=== PATIENT | female | born 1965 | race Caucasian/White ===

== ENCOUNTER 2022-12-23 14:35 | Emergency (ER) | payer MEDICAID, SELFPAY ==
[2022-12-23 14:44] VITALS: BP 163/100; PULSE 79; RESP 20; TEMP 36.8; O2SAT 99
--- NOTE | 2022-12-23 15:15 | DI.CT_ITS ---
Exam(s) CT LUMBAR SPINE W CT THORACIC SPINE W EXAM: CT THORACIC and lumbar SPINE W CLINICAL HISTORY: Neurostimulator implant worsening pain. TECHNIQUE: Imaging Protocol: Axial computed tomography images with coronal and sagittal reformatted images were created and reviewed. CONTRAST MATERIAL: Intravenous: Omnipaque 350. Contrast volume:100 mL COMPARISON: CT CT LUMBAR SPINE W from 12/23/2022 FINDINGS: Bones: No fractures or dislocations are seen. There are degenerative changes seen in the lumbar spin e particularly at the L5-S1 disc level. There is a broad-based disc bulge at L4-L5 causing severe ce ntral spinal canal stenosis. No lytic or sclerotic lesions are seen. There is a prior L5 laminectom y. There is a mild levoscoliosis. Old superior endplate compression deformities are seen at T3 and T5. Soft tissues: The soft tissues of the chest are unremarkable. No suspicious soft tissue masses are se en. There is a left gluteal subcutaneous neurostimulator. The nerve stimulator is seen at the epidu ral space at T8-T9. Enhancement: Normal abnormal enhancement is identified. IMPRESSION: 1. No paravertebral soft tissue masses or abnormal enhancement. 2. Left gluteal subcutaneous neural stimulator which is seen in the epidural space at T8-T9. 3. Degenerative changes in the thoracic and lumbar spine. 4. Old superior endplate compression fracture deformities at T3 and T5. No acute fractures or sublux ations. RADIATION DOSE DELIVERED: 998.55 mGy.cm Total DLP DATA REPOSITORY: All CT scans at this facility are submitted to the National Radiology Data Registry (NRDR) Dose Index Registry (DIR) with the [employer] ([employer]). RADIATION OPTIMIZATION: All CT scans at this facility use at least one of these dose optimization te chniques: automated exposure control; mA and/or kV adjustment per patient size (includes targeted exa ms where dose is matched to clinical indication); or iterative reconstruction.
--- NOTE | 2022-12-23 15:15 | DI.RAD_ITS ---
Exam(s) XR CHEST 2V PA LATERAL EXAM: XR CHEST 2V PA LATERAL CLINICAL HISTORY: cough TECHNIQUE: 2D digital imaging was performed of the chest. Two images were obtained. PA and lateral views were obtained. COMPARISON: No exams were available for comparison FINDINGS: MEDIASTINUM: Normal. HEART: Normal. PULMONARY VASCULATURE: Normal. LUNGS: Clear. PLEURAL SPACE: No pleural effusion or pneumothorax. BONE:Within normal limits for the patient's age. OTHER FINDINGS:There is a nerve stimulator device in place. The tip is seen at the T8-T9 level. IMPRESSION: No acute pulmonary findings. DATA REPOSITORY: RADIATION DOSE DELIVERED:
[2022-12-23 15:21] LABS: Lactate 0.6 mmol/L (0.6-1.4)
--- NOTE | 2022-12-23 15:21 | ED.GENADUL_ITS ---
Discharge Plan Disposition Patient Disposition: Home Condition: Stable Discharge Details Clinical Impression: Chronic back pain Primary Care Provider: Jessica Colby ED Provider: Joy Malave Home Meds and New Rx's Prescriptions: Continued CATIFLAN 50 mg PO QID PRN TOPAMAX 100 MG tablet 100 mg PO BID TYLENOL EXTRA STRENG 500 MG tablet 500 mg PO 1500 12/01/08 VALTREX 500 MG tablet 500 mg PO DAILY VITAMIN D 400 UNIT capsule 400 unit PO TID WELLBUTRIN SR 150 MG TABLET.SA 2 tab PO DAILY latanoprost [Xalatan] 2.5 ML drops 2.5 ml Ophthalmic HS sennosides [Senokot] 1 TAB tablet 2 tab PO HS acetaminophen [Tylenol] 325 MG tablet 2 day PO BID pantoprazole 40 MG tablet,delayed release (DR/EC) 40 mg PO DAILY chromium-brindal rodríguez [Garcinia Cambogia] 1 EACH tablet 1 ea PO DIRECTED pramipexole 0.125 MG tablet 2 l PO DAILY docusate sodium [Colace] 100 MG capsule 100 mg PO DAILY bisacodyl 5 MG tablet,delayed release (DR/EC) 5 mg PO DAILY PRN fluticasone propionate 16 GM spray,suspension 16 gm NS DAILY melatonin 3 MG tablet extended release 9 mg PO HS PRN levalbuterol tartrate [Xopenex HFA] 200 PUFF HFA aerosol inhaler 200 puff Inhalation Q6H PRN PRN pregabalin [Lyrica] 150 MG capsule 150 mg PO DAILY cetirizine [Zyrtec] 10 MG capsule 10 mg PO BID vilazodone [Viibryd] 20 MG tablet 20 mg PO DAILY Meloxicam 7.5 MG Tablet 7.5 mg PO BID PRN doxycycline hyclate [Doryx] 100 MG tablet,delayed release (DR/EC) 100 mg PO BID Qty: 14 0RF Discharge Instructions Instructions: Chronic Back Pain (DC) Additional Instructions: No bending lifting or twisting from the waist Follow-up with your outpatient spine providers for further evaluation You can try lidocaine patches for symptoms. Referrals: Jessica Colby [Primary Care Provider] - Discharge Data Discharge Date/Time-TO BE ENTERED AT DEPARTURE: 12/23/22 17:35 Medical Decision Making <James Flynn NP - Last Filed: 12/24/22 17:29> Patient presenting to the emergency department for chief complaint of back pain. Patient reports over the past 2 weeks she has noted increased back pain mainly on the right side of her mid thorax radiating laterally. Patient has history of chronic back pain with neurostimulator implant and states that she has had complications including MRSA infections. Patient denies any fever but does state intermittent chills, pain with movement, small area underneath bra line that she thought was slightly reddened. She also reports over the past couple months she has had a cough that does worsen her pain. Physical exam shows clear lung sounds, normal cardiac exam, significant surgical scar midline of the thorax with mid thorax abrasion just under the bra line with no purulence, no drainage, no significant surrounding erythema, no fluctuance. Patient does have some right-sided paraspinal tenderness to palpation and otherwise unremarkable exam. Patient is well-appearing with stable vital signs beyond noted hypertension. Given patient's history of neural spinal implant with some complications noted in the past will perform labs and CT imaging. Will perform chest x-ray due to patient's complaint of continued cough. Overall with patient's well appearance I have lower suspicion that this is infection but given history will proceed with work-up. Pending results will give patient small dose of ketorolac. <Joy Malave NP - Last Filed: 12/23/22 17:23> Medical Records Medical records reviewed: Yes I reviewed the patient's medical records. Medical records narrative: Report and care of patient has been received from Freddie Flynn APRN. Chart has been reviewed. We are awaiting CT imaging. Patient remains hemodynamically stable with exam unchanged while awaiting results. Her CAT scans have been reviewed and shows no acute findings to explain her symptoms. She is stable and ready for discharge to home Imaging Data Radiologic Study: Imaging: CT Scan Radiologist's impression: Patient Name: Mitali Armas Unit #: [id number] Loc: ER ? Ordering Provider:? Status: REG ER ? Primary Care Provider: Jessica Colby Date of Exam: 12/23/22 Sex: F ? : 1965 Age: 57 ? Exam(s) PROCEDURE INFORMATION: Exam: CT Thoracic Spine With Contrast Exam date and time: 12/23/2022 4:29 PM Age: 57 years old Clinical indication: Pain in thoracic spine; Patient HX: Neurostimulator implant, worsening pain TECHNIQUE: Imaging protocol: Computed tomography of the thoracic spine with contrast. COMPARISON: No relevant prior studies available. FINDINGS: Tubes, catheters and devices: Thoracic level epidural pain management stimulator leads are noted in the posterior epidural space at T8-T9. Bones/joints: There is chronic mild superior endplate compression of T5 and T3. There are no acute fractures. No lytic or blastic bone lesions. Multilevel [id number] facet arthropathy. Calcified disc at T9-10 Soft tissues: Paraspinous soft tissues are unremarkable. Vasculature: Descending thoracic aorta is normal in course and caliber. Lungs: Visible lung mike are unremarkable. Pleural spaces: Visible pleural space is unremarkable. IMPRESSION: 1. ? Degenerative facet changes. 2. ? Old mild superior endplate compression fractures of T3 and T5. Minimal loss of height. 3. ? Posterior thoracic epidural pain pest management supervisor at the T8-T9 level. 4. ? Paravertebral soft tissues are unremarkable. 5. ? No acute findings. Dictated and Authenticated by: Ivan Wesley MD. Ordering:JESSICA Ramirez MD Radiologic Study #2: Imaging: X-Ray Radiologist's impression: Patient Name: Mitali Armas Unit #: [id number] Loc: ER ? Ordering Provider:? Status: REG ER ? Primary Care Provider: Jessica Colby Date of Exam: 12/23/22 Sex: F ? : 1965 Age: 57 ? Exam(s) PROCEDURE INFORMATION: Exam: XR Chest Exam date and time: 12/23/2022 4:40 PM Age: 57 years old Clinical indication: Cough TECHNIQUE: Imaging protocol: Radiologic exam of the chest. Views: 2 views. COMPARISON: CT THORACIC SPINE W 12/23/2022 4:29 PM FINDINGS: Lungs: Unremarkable. No consolidation. Pleural spaces: Unremarkable. No pleural effusion. No pneumothorax. Heart/Mediastinum: Unremarkable. No cardiomegaly. Bones/joints: No acute skeletal changes. Thoracic spine epidural pain management stimulator leads. IMPRESSION: 1. ? No acute findings. 2. ? Clear lungs and pleural space. Dictated and Authenticated by: Ivan Wesley MD. Ordering:JESSICA Ramirez MD Radiologic Study #3: Radiologist's impression: Exam(s) PROCEDURE INFORMATION: Exam: CT Lumbar Spine With Contrast Exam date and time: 12/23/2022 4:29 PM Age: 57 years old Clinical indication: Low back pain; Patient HX: Neurostimulator implant, worsening pain TECHNIQUE: Imaging protocol: Computed tomography of the lumbar spine with contrast. COMPARISON: No relevant prior studies available. FINDINGS: Tubes, catheters and devices: There is a left gluteal subcutaneous neurostimulator. Bones/joints: Lumbar vertebral bodies are normal in height, shape, density, and alignment. There is severe degenerative disc space narrowing at L5-S1. There is a broad-based posterior disc bulge at L4-L5 measuring 6 mm. There is severe spinal stenosis at L4-L5. No compression fractures. No neoplastic features. Previous L5 total laminectomy. Mild levoscoliosis. Vasculature: Abdominal aorta is normal in caliber. Minor atherosclerotic calcium. Soft tissues: Paravertebral soft tissues are unremarkable. IMPRESSION: 1. ? Degenerative lumbar spine. 2. ? No compression fractures. 3. ? Severe degenerative disc disease at L5-S1. 4. ? Severe spinal stenosis at L4-L5 with a broad-based posterior 6 mm disc bulge, severe ligamentum flavum hypertrophy, and moderate to severe facet arthropathy. 5. ? Paravertebral soft tissues are unremarkable. Dictated and Authenticated by: Ivan Wesley MD. Ordering:JESSICA Ramirez MD HPI <James Flynn NP - Last Filed: 12/24/22 17:29> General Mode of arrival: ambulatory . Date/Time Provider Initiated Documentation: 12/23/22 14:40 . Limitations to Documentation: no limitations . Information obtained by: patient and RN notes reviewed . History of Present Illness 57 year old F presents to the emergency department with the chief complaint of Back pain, described as moderate and similar to prior episodes, Quality is described as aching, and is localized to the back. Patient reports radiation to (Lateral). Patient started experiencing this week(s) (2) and it has been constant. No relieving factors improve symptom(s), Movement worsens symptoms . Patient notes no other symptoms.. Patient did receive the following treatments prior to arrival, none Related Data Home Medications Medication Instructions Recorded Confirmed Catiflan 50 mg PO QID PRN 10/19/08 Topamax 100 mg PO BID 10/19/08 Valtrex 500 mg PO DAILY 10/19/08 Vitamin D 400 unit PO TID 10/19/08 Wellbutrin Sr 2 tab PO DAILY 10/19/08 Tylenol Extra Streng 500 mg PO 1500 12/01/08 12/01/08 Meloxicam 7.5 mg PO BID PRN 12/06/16 12/06/16 acetaminophen 325 mg tablet 2 day PO BID 12/06/16 12/06/16 (Tylenol) bisacodyl 5 mg tablet,delayed 5 mg PO DAILY PRN 12/06/16 12/06/16 release cetirizine 10 mg capsule (Zyrtec) 10 mg PO BID 12/06/16 12/06/16 chromium 200 mcg-brindal rodríguez 500 1 ea PO DIRECTED 12/06/16 12/06/16 mg tablet (Garcinia Cambogia) docusate sodium 100 mg capsule 100 mg PO DAILY 12/06/16 12/06/16 (Colace) fluticasone propionate 50 16 gm NS DAILY 12/06/16 12/06/16 mcg/actuation nasal spray,suspension latanoprost 0.005 % eye drops 2.5 ml ophthalmic (eye) HS 12/06/16 12/06/16 (Xalatan) levalbuterol tartrate 45 200 puff inhalation Q6H PRN PRN 12/06/16 12/06/16 mcg/actuation aerosol inhaler (Xopenex HFA) melatonin 3 mg tablet,extended 9 mg PO HS PRN 12/06/16 12/06/16 release pantoprazole 40 mg tablet,delayed 40 mg PO DAILY 12/06/16 12/06/16 release pramipexole 0.125 mg tablet 2 l PO DAILY 12/06/16 12/06/16 pregabalin 150 mg capsule (Lyrica) 150 mg PO DAILY 12/06/16 12/06/16 sennosides 8.6 mg tablet (Senokot) 2 tab PO HS 12/06/16 12/06/16 vilazodone 20 mg tablet (Viibryd) 20 mg PO DAILY 12/06/16 12/06/16 doxycycline hyclate 100 mg 100 mg PO BID ##14 03/05/17 tablet,delayed release (Doryx) Previous Rx's Medication Instructions Recorded doxycycline hyclate 100 mg 100 mg PO BID ##14 03/05/17 tablet,delayed release (Doryx) Allergies Allergy/AdvReac Type Severity Reaction Status Date / Time vancomycin Allergy Severe Anaphylaxis Unverified 12/23/22 14:49 cat dander Allergy Unverified 12/23/22 14:49 erythromycin base Allergy Unverified 12/23/22 14:49 gabapentin Allergy Unverified 12/23/22 14:49 hydrocodone Allergy Unverified 12/23/22 14:49 latex Allergy Unverified 12/23/22 14:49 Milk Containing Products Allergy Unverified 12/23/22 14:49 (Dairy) [Milk Containing Products] General Stated Complaint: Nk/Back Pain SHELLI: 3 Review of Systems <James Flynn NP - Last Filed: 12/24/22 17:29> Constitutional Constitutional: Reports chills and Denies fever(s) Cardiovascular Cardiovascular: Denies chest pain and Denies dyspnea on exertion Respiratory Respiratory: Reports cough, Reports pain with cough and Denies dyspnea on exertion Gastrointestinal Gastrointestinal: Denies abdominal pain, Denies change in bowel habits, Denies diarrhea, Denies nausea and Denies vomiting Genitourinary Genitourinary: Denies urinary incontinence Musculoskeletal Musculoskeletal: Reports as per HPI and Reports back pain Neurologic Neurologic: Denies sensory deficit PFSH <James Flynn NP - Last Filed: 12/24/22 17:29> All Active Problems (Updated 12/23/22 @ 17:21 by Joy Malave NP) Chronic back pain (Acute) Social History Smoking/Tobacco Use Status: Never Smoking risk assessment performed?: Yes Alcohol Intake: never Do you feel safe in your relationship?: Yes Exam <James Flynn NP - Last Filed: 12/24/22 17:29> Const General: cooperative, no acute distress and not ill appearing Orientation: alert, awake and oriented x3 HENMT Mouth: moist mucous membranes Resp Effort & Inspection: normal respiratory effort, able to speak in complete sentences and no respiratory distress Auscultation: clear to auscultation bilaterally Cardio Rate: regular rate Rhythm: regular rhythm Heart Sounds: S1 normal and S2 normal Back/Spine/Pelvis Cervical Spine: normal cervical lordosis, No cervical spinal tenderness and No step off deformity Thoracic/Lumbar Spine: surgical scar(s) present, pain with thoraco-lumbar ROM, paraspinal tenderness, No thoracic spinal tenderness and No lumbar spinal tenderness Skin General skin exam: no rashes or lesions noted Trauma: abrasion Neuro General: patient alert, patient awake, patient oriented x3, gait normal, tone normal, moves all extremities, no meningeal signs, no focal motor deficits and not confused Sensory Exam: no sensory deficits noted Course <James Flynn NP - Last Filed: 12/24/22 17:29> Vital Signs Vital signs: Vital Signs Temperature 36.8 C 12/23/22 14:44 Pulse 79 12/23/22 14:44 Respiratory Rate 20 12/23/22 14:44 Blood Pressure 163/100 H 12/23/22 14:44 Pulse Oximetry 99 12/23/22 14:44 Temperature 36.8 C 12/23/22 14:44 Temperature Source Skin 12/23/22 14:44 Pulse 79 12/23/22 14:44 Respiratory Rate 20 12/23/22 14:44 Respiratory Effort Normal 12/23/22 14:50 Blood Pressure 163/100 H 12/23/22 14:44 Blood Pressure Position Sitting 12/23/22 14:44 Pulse Oximetry 99 12/23/22 14:44 Oxygen Delivery Method Room Air 12/23/22 14:44 Oxygen Flow Rate 0 12/23/22 14:44 Pain Level 6 12/23/22 14:44 Sign Out <James Flynn NP - Last Filed: 12/24/22 17:29> Sign Out Data: Sign Out Comment: Patient signed out to Joy Malave pending labs and CT imaging with likely disposition of discharge to follow-up with her spinal surgeon due to her back pain unless abnormal findings are noted on work-up Last updated by James Flynn NP at 12/23/22 15:29
[2022-12-23 15:24] LABS: ESR 16 mm/hr (0-30)
[2022-12-23 15:27] LABS: Abs Immature Grans 0.02 10^3/uL (0.0-0.06); Absolute Basophil Count 0.07 10^3/uL (0.0-0.2); Absolute Eosinophil Count 0.07 10^3/uL (0.0-0.7); Absolute Lymphocyte Count 1.17 10^3/uL (1.2-3.4); Absolute Monocyte Count 0.39 10^3/uL (0.1-0.8); Absolute Neutrophil Count 4.73 10^3/uL (1.2-6.7); Basophils % 1.1; Eosinophils % 1.1; HCT 42.8 % (36.0-46.0); HGB 14.1 g/dL (11.2-15.7); Immature Grans % 0.3; Lymphocytes % 18.1; MCHC 32.9 % (32.0-36.0); MCV 91 fL (80-95); MPV 9.8 fL (8.0-11.0); Neutrophils % 73.4; Platelet Count 353 10^3/uL (130-400); RDW 13.1 % (11.7-14.6); WBC 6.45 10^3/uL (4.4-10.8)
[2022-12-23 15:46] LABS: ALT 27 U/L (14-59); AST 22 U/L (15-37); Alkaline Phosphatase 71 U/L (46-116); BUN 15 mg/dL (7-18); Bilirubin, Total 0.2 mg/dL (0.2-1.0); C-Reactive Protein 0.21 mg/dL (0.0-0.3); CREATININE 1.1 mg/dL (0.55-1.02); Calcium 9.2 mg/dL (8.5-10.1); Chloride 103 mmol/L (98-107); Estimated GFR 58.97 (mL/min/1.73m2); Glucose 113 mg/dL (74-106); Potassium 4.2 mmol/L (3.5-5.1); Sodium 138 mmol/L (136-145); Total Protein 7.5 g/dL (6.4-8.2)
[2022-12-23] MEDS: Ketorolac 15 MG/ML VIAL IVP (15:49)
[2022-12-23 16:11] LABS: Procalcitonin < 0.1 ng/mL
[2022-12-23] MEDS: Omnipaque 350 MG/ML 100 ML BTL IJ (16:27)
[2022-12-23] MEDS: Normal Saline - Diluent 50 ML VIAL IJ (16:28)
--- NOTE | 2022-12-23 16:55 | DI.VRAD_ITS ---
PROCEDURE INFORMATION: Exam: XR Chest Exam date and time: 12/23/2022 4:40 PM Age: 57 years old Clinical indication: Cough TECHNIQUE: Imaging protocol: Radiologic exam of the chest. Views: 2 views. COMPARISON: CT THORACIC SPINE W 12/23/2022 4:29 PM FINDINGS: Lungs: Unremarkable. No consolidation. Pleural spaces: Unremarkable. No pleural effusion. No pneumothorax. Heart/Mediastinum: Unremarkable. No cardiomegaly. Bones/joints: No acute skeletal changes. Thoracic spine epidural pain management stimulator leads. IMPRESSION: 1. No acute findings. 2. Clear lungs and pleural space. Dictated and Authenticated by: Ivan Wesley MD. Ordering:JESSICA Ramirez MD
--- NOTE | 2022-12-23 17:12 | DI.VRAD_ITS ---
PROCEDURE INFORMATION: Exam: CT Thoracic Spine With Contrast Exam date and time: 12/23/2022 4:29 PM Age: 57 years old Clinical indication: Pain in thoracic spine; Patient HX: Neurostimulator implant, worsening pain TECHNIQUE: Imaging protocol: Computed tomography of the thoracic spine with contrast. COMPARISON: No relevant prior studies available. FINDINGS: Tubes, catheters and devices: Thoracic level epidural pain management stimulator leads are noted in the posterior epidural space at T8-T9. Bones/joints: There is chronic mild superior endplate compression of T5 and T3. There are no acute fractures. No lytic or blastic bone lesions. Multilevel mwzf-kz-xpnhsdxj facet arthropathy. Calcified disc at T9-10 Soft tissues: Paraspinous soft tissues are unremarkable. Vasculature: Descending thoracic aorta is normal in course and caliber. Lungs: Visible lung mike are unremarkable. Pleural spaces: Visible pleural space is unremarkable. IMPRESSION: 1. Degenerative facet changes. 2. Old mild superior endplate compression fractures of T3 and T5. Minimal loss of height. 3. Posterior thoracic epidural pain home management supervisor at the T8-T9 level. 4. Paravertebral soft tissues are unremarkable. 5. No acute findings. Dictated and Authenticated by: Ivan Wesley MD. Ordering:JESSICA Ramirez MD
--- NOTE | 2022-12-23 17:17 | DI.VRAD_ITS ---
PROCEDURE INFORMATION: Exam: CT Lumbar Spine With Contrast Exam date and time: 12/23/2022 4:29 PM Age: 57 years old Clinical indication: Low back pain; Patient HX: Neurostimulator implant, worsening pain TECHNIQUE: Imaging protocol: Computed tomography of the lumbar spine with contrast. COMPARISON: No relevant prior studies available. FINDINGS: Tubes, catheters and devices: There is a left gluteal subcutaneous neurostimulator. Bones/joints: Lumbar vertebral bodies are normal in height, shape, density, and alignment. There is severe degenerative disc space narrowing at L5-S1. There is a broad-based posterior disc bulge at L4-L5 measuring 6 mm. There is severe spinal stenosis at L4-L5. No compression fractures. No neoplastic features. Previous L5 total laminectomy. Mild levoscoliosis. Vasculature: Abdominal aorta is normal in caliber. Minor atherosclerotic calcium. Soft tissues: Paravertebral soft tissues are unremarkable. IMPRESSION: 1. Degenerative lumbar spine. 2. No compression fractures. 3. Severe degenerative disc disease at L5-S1. 4. Severe spinal stenosis at L4-L5 with a broad-based posterior 6 mm disc bulge, severe ligamentum flavum hypertrophy, and moderate to severe facet arthropathy. 5. Paravertebral soft tissues are unremarkable. Dictated and Authenticated by: Ivan Wesley MD. Ordering:JESSICA Ramirez MD
[2022-12-23 17:31] VITALS: BP 164/97; PULSE 69; RESP 16; TEMP 36.1; O2SAT 99
== END 2022-12-23 17:35 | disposition home or self-care (01) ==
PROVIDERS: Nurse Practitioner Family; Emergency Provider Nurse Practitioner Acute Care; PCP Internal Medicine
DX: M54.50 Low back pain, unspecified (principal); G89.18 Other acute postprocedural pain; R05.9 Cough, unspecified; Z96.82 Presence of neurostimulator
CPT/HCPCS: 36415; 80053; 84145; 85652; 96374; 99285; 71046; 72129; 72132; 83605; 85025; 86140; 99284; J1885; J3490

== ENCOUNTER 2024-09-08 14:28 | Observation (INO) | payer BC, SELFPAY ==
[2024-09-08] VITALS (85 sets, daily range): BP systolic 106–163; BP diastolic 58–102; PULSE 58–105; RESP 20; TEMP 36.7; O2SAT 96–100
--- NOTE | 2024-09-08 16:08 | W.ED.GENAD ---
Discharge Plan Discharge Details Chief Complaint: RespSymp Primary Care Provider: Jessica Colby ED Provider: Bayron Jane Home Meds and New Rx's Prescriptions: No Action TYLENOL EXTRA STRENG 500 MG tablet 500 mg PO 1500 12/01/08 acetaminophen [Tylenol] 325 MG tablet 2 day PO BID bisacodyl 5 MG tablet,delayed release (DR/EC) 5 mg PO DAILY PRN fluticasone propionate 16 GM spray,suspension 16 gm NS DAILY pregabalin [Lyrica] 150 MG capsule 150 mg PO DAILY Zyrtec 10 MG capsule 10 mg PO BID vilazodone [Viibryd] 20 MG tablet 20 mg PO DAILY lisinopril 40 mg tablet 40 mg PO DAILY hydrochlorothiazide 25 mg tablet 25 mg PO DAILY HPI General Date/Time Provider Initiated Documentation: 09/08/24 15:23. HPI Narrative: MDM This is an overall well-appearing normothermic and not tachycardic 59-year-old female with recent spinal cord stimulator and generalized fatigue with heart rate greater than 90 for which patient will undergo screening labs and broad-spectrum antibiotics given concern for possible sepsis. Given her malaise we will send a dimer to assess for PE given that she is recently postop. She has no pain out of proportion to suggest necrotizing soft tissue infection. She is not having any significant back pain to suggest increased risk for spinal epidural abscess so I do not feel that she requires an emergent MRI. No fluctuance to suggest abscess. Furthermore she has no objective weakness in her bilateral lower extremities. She does have slightly decreased reflexes but she reports that this is chronic. She has not lost control of her bowels or bladder to suggest increased risk for cauda equina syndrome. No rash to suggest zoster. Given episodic chills cough will swab for COVID and obtain a chest x-ray. Patient is neurologically intact so not suspicious for CVA so I did not feel the patient for CT scan of her head. She has a soft nontender abdomen so my suspicion is low for intra-abdominal infection so I do not feel that her presentation represents appendicitis, diverticulitis. No black or bloody stools to suggest increased risk for acute blood loss anemia. 5:50 PM Basic metabolic panel with marked hyperglycemia and Acidosis. No ANDRES. Patient given crackers along with D5 NS. She is pending a D-dimer and a lactate. 10:20 PM Late charting due to patient care. Patient was ultimately accepted by Dr. Coughlin. Patient CT has not yet been read. HPI The patient presents for evaluation of generalized fatigue. She reports experiencing back pain following a spinal stimulator implantation procedure performed in [place] at the beginning of July 2024. The stimulator was initially implanted in 2018 due to a herniated disc impinging on her spinal cord, which required surgical intervention. She believes the current stimulator is not functioning optimally, as she experiences shocks during urination, even without any movement. She said that her surgery was performed at [facility] in [facility]. She also reports persistent back pain, which she describes as irritating. She reports that her back pain is not new or different chronic. She expresses concern about a potential recurrence of MRSA, citing previous instances where the infection was not immediately visible. She reports no loss of bowel or bladder control but admits to difficulty urinating, which improves when the stimulator is deactivated. She has been advised by her healthcare providers to allow time for healing. She recalls an incident of misdiagnosis with MRSA, which led to the insertion and subsequent removal of a PICC line. She also mentions a general feeling of malaise, including fatigue, frequent coughing, and occasional chills. She does not have any fevers. Exam General: Well-appearing in no acute distress speaking in complete sentences. Lying on the side of the stretcher. Head: Normocephalic, atraumatic. Eye: Extraocular eye movements intact. No conjunctival injection. No scleral icterus. Ear, nose, mouth, throat: Grossly normal inspection. Normal voice, handling secretions normally. Neck: Trachea midline. No midline cervical spinal tenderness. Cardiovascular: Well-perfused distal extremities. Regular rate and rhythm. Respiratory: Nonlabored respiration. Clear lungs bilaterally. Back: Midline thoracic healing incision. No step-offs. No deformities. No midline thoracic nor lumbar spine tenderness. At the approximately mid scapular line and the patient's left paraspinal lumbar area there is a well-healing approximately 3 cm incision her patient reports that her spinal cord stimulator is located. Gastrointestinal: Nondistended abdomen. Musculoskeletal: No edema. Moving all 4 extremities spontaneously. 5 out of 5 bilateral lower extremity strength on dorsi and plantarflexion. 1+ bilateral patellar reflexes. Patient has a stable gait. She can straight leg raise bilaterally. Skin: Normal for age and race, grossly normal temperature and turgor. No acute rash. Neurologic: Alert and appropriate, no apparent acute deficits. GCS 15. Cranial nerves II through XII intact grossly. L Related Data Home Medications ?Medication ?Instructions ?Recorded ?Confirmed Tylenol Extra Streng 500 mg PO 1500 12/01/08 12/01/08 09/08/24 acetaminophen 325 mg tablet 2 day PO BID 12/06/16 09/08/24 (Tylenol) bisacodyl 5 mg tablet,delayed 5 mg PO DAILY PRN 12/06/16 09/08/24 release cetirizine 10 mg capsule (Zyrtec) 10 mg PO BID 12/06/16 09/08/24 fluticasone propionate 50 16 gm NS DAILY 12/06/16 09/08/24 mcg/actuation nasal spray,suspension pregabalin 150 mg capsule (Lyrica) 150 mg PO DAILY 12/06/16 09/08/24 vilazodone 20 mg tablet (Viibryd) 20 mg PO DAILY 12/06/16 09/08/24 hydrochlorothiazide 25 mg tablet 25 mg PO DAILY 09/08/24 09/08/24 lisinopril 40 mg tablet 40 mg PO DAILY 09/08/24 09/08/24 Allergies Allergy/AdvReac Type Severity Reaction Status Date / Time vancomycin Allergy Severe Anaphylaxis Unverified 09/08/24 14:36 cat dander Allergy Hives Unverified 09/08/24 14:36 erythromycin base Allergy Hives Unverified 09/08/24 14:36 gabapentin Allergy Hives Unverified 09/08/24 14:36 hydrocodone Allergy Unknown Unverified 09/08/24 14:36 latex Allergy Unknown Unverified 09/08/24 14:36 Milk Containing Products Allergy Other (See Unverified 09/08/24 14:36 (Dairy) (Milk Containing Comment) Products) General Stated Complaint: RespSymp SHELLI: 3 Course Vital Signs Vital signs: Vital Signs Temperature 36.7 C 09/08/24 14:30 Pulse 95 H 09/08/24 14:30 Respiratory Rate 20 09/08/24 14:30 Blood Pressure 163/102 H 09/08/24 14:30 Pulse Oximetry 97 09/08/24 14:30 Temperature 36.7 C 09/08/24 14:34 Pulse 95 H 09/08/24 14:34 Respiratory Rate 20 09/08/24 14:34 Blood Pressure 163/102 H 09/08/24 14:34 Blood Pressure Position Sitting 09/08/24 14:34 Pulse Oximetry 97 09/08/24 14:34 Oxygen Delivery Method Room Air 09/08/24 14:34 Oxygen Flow Rate 0 09/08/24 14:34 Medical Decision Making Quality:SDOH Health Related Social Needs: No Data to Display [facility] All Active Problems (Updated 09/08/24 @ 22:27 by Bayron Coughlin) DVT prophylaxis (Acute) High anion gap (Acute) Hypoglycemia (Acute) Chronic back pain (Acute) Medical History (Updated 09/08/24 @ 22:27 by Bayron Coughlin) H/O methicillin resistant Staphylococcus aureus 2018 at [facility] ADHD Urticaria PTSD (post-traumatic stress disorder) Major depression Hypertension Surgical History (Updated 09/08/24 @ 22:11 by Bayron Coughlin) S/P placement of nerve stimulator lower back, battery replaced July 2024, [facility] Social History (Updated 09/08/24 @ 22:16 by Bayron Coughlin) Smoking/Tobacco Use Status: Never Smoking risk assessment performed?: Yes Alcohol Intake: never Do you feel safe in your relationship?: Yes Additional Social history: formerly worked at [employer] in [employer]. Lives in [place]
--- NOTE | 2024-09-08 16:59 | DI.RAD_ITS ---
Exam(s) XR PORTABLE CHEST AP EXAM: XR PORTABLE CHEST AP CLINICAL HISTORY: Fatigue TECHNIQUE: 2D digital imaging was performed of the chest. One image was obtained. An AP view was ob tained. COMPARISON: CR,XR XR CHEST 2V PA LATERAL from 12/23/2022 FINDINGS: MEDIASTINUM: Normal. HEART: Normal. PULMONARY VASCULATURE: Normal. LUNGS: Clear. PLEURAL SPACE: No pleural effusion or pneumothorax. BONE:Within normal limits for the patient's age. OTHER FINDINGS:Nerve stimulator device is again seen. IMPRESSION: No acute pulmonary findings. DATA REPOSITORY: RADIATION DOSE DELIVERED:
[2024-09-08 17:24] LABS: Abs Immature Grans 0.01 10^3/uL (0.0-0.06); Absolute Basophil Count 0.06 10^3/uL (0.0-0.2); Absolute Eosinophil Count 0.06 10^3/uL (0.0-0.7); Absolute Lymphocyte Count 1.43 10^3/uL (1.2-3.4); Absolute Monocyte Count 0.43 10^3/uL (0.1-0.8); Absolute Neutrophil Count 2.63 10^3/uL (1.2-6.7); Basophils % 1.3 %; Eosinophils % 1.3 %; HCT 40.5 % (36.0-46.0); HGB 13.5 g/dL (11.2-15.7); Immature Grans % 0.2 %; MCH 30.3 pg (27.0-33.0); MCHC 33.3 % (32.0-36.0); MCV 91 fL (80-95); MPV 9.9 fL (8.0-11.0); Monocytes % 9.3 %; Neutrophils % 56.9 %; Platelet Count 377 10^3/uL (130-400); RBC 4.46 10^6/uL (3.93-5.22); RDW 12.5 % (11.7-14.6); RDW-SD 41.5 fL; WBC 4.62 10^3/uL (4.4-10.8)
[2024-09-08 17:35] LABS: Anion Gap 17.4 mmol/L (3-11); BUN 15 mg/dL (7-18); CO2 21.6 mmol/L (21.0-32.0); CREATININE 0.8 mg/dL (0.55-1.02); Chloride 98 mmol/L (98-107); Estimated GFR 85.35 (mL/min/1.73m2); Sodium 137 mmol/L (136-145)
[2024-09-08 17:40] LABS: HCG Qual (Serum) Negative
[2024-09-08 17:42] LABS: Glucose 44 mg/dL (74-106)
[2024-09-08] MEDS: DEXTROSE 5%-0.9% SALINE 1,000 ML 1000 ML IV (18:19)
[2024-09-08 18:25] LABS: D-Dimer 782 ng/mlFEU (<500)
[2024-09-08] MEDS: CEFEPIME 2 GM in Normal Saline 100 ML IVPB (18:59)
[2024-09-08 19:14] LABS: COVID-19 PCR Negative (Negative); Influenza A PCR Negative (Negative); Influenza B PCR Negative (Negative); RSV PCR Negative (Negative)
[2024-09-08 19:15] LABS: Source Nasopharynx
[2024-09-08] MEDS: Normal Saline 1,000 ML 1000 ML IV (20:02)
[2024-09-08] MEDS: LINEZOLID 600 MG/300 ML BAG 300 MG IVPB (20:02)
[2024-09-08 20:48] LABS: Bilirubin Negative (Negative); Blood Small (Negative); Clarity Clear (Clear); Glucose >=1000 mg/dL (Negative); Ketones 40 mg/dL (Negative); Leukocyte Esterase Negative (Negative); Nitrite Negative (Negative); Specific Gravity <= 1.005 (1.005-1.025); Urobilinogen 0.2 mg/dL (Up to 0.2); pH 5.5 (5-8)
[2024-09-08 21:04] LABS: Bacteria Rare HPF (Negative); C & S Indicated? No; Casts Negative LPF (Negative); Crystals Negative HPF (Negative); Epithelial Cells Rare HPF (Negative); Mucus Negative (Negative); RBC 0-2 HPF (0-2); WBC Negative HPF (0-5)
[2024-09-08] MEDS: Omnipaque 350 MG/ML 100 ML BTL 70 ML IJ (21:36)
[2024-09-08] MEDS: Normal Saline - Diluent 50 ML VIAL IJ (21:38)
--- NOTE | 2024-09-08 21:41 | DI.CT_ITS ---
Exam(s) CT THORACIC SPINE RECONS EXAM: CT THORACIC SPINE RECONS CLINICAL HISTORY: Spinal stimulator. TECHNIQUE: Imaging Protocol: Axial computed tomography images with coronal and sagittal reformatted images were created and reviewed. CONTRAST MATERIAL: Intravenous: None COMPARISON: CT CT LUMBAR SPINE WO from 09/08/2024 FINDINGS: OSSEOUS: There is a neural stimulator with posterior epidural leads and at T8-T9 levels. This causes some art ifact.. There some calcification within the T9-10 disc. Also some endplate sclerosis noted in the i nferior aspect of T9 vertebral body. No evidence of acute fracture there is slight loss of height of superior endplates of upper thoracic vertebral bodies but without obvious acute appearance. Mild scoliosis convex left in the mid-upper t horacic spine. No prominent scoliosis. No significant osseous lesions. IMPRESSION: Findings as above but without acute fractures evident. RADIATION DOSE DELIVERED: 67.59mGy.cm Total DLP DATA REPOSITORY: All CT scans at this facility are submitted to the National Radiology Data Registry (NRDR) Dose Index Registry (DIR) with the [employer] (ACR). RADIATION OPTIMIZATION: All CT scans at this facility use at least one of these dose optimization te chniques: automated exposure control; mA and/or kV adjustment per patient size (includes targeted exa ms where dose is matched to clinical indication); or iterative reconstruction.
--- NOTE | 2024-09-08 21:41 | DI.CT_ITS ---
Exam(s) CT LUMBAR SPINE WO EXAM: CT LUMBAR SPINE WO CLINICAL HISTORY: Spinal stimulator. TECHNIQUE: Imaging Protocol: Axial computed tomography images with coronal and sagittal reformatted images were created and reviewed COMPARISON: No exams were available for comparison FINDINGS: Bones: Schmorl's node invagination noted in the superior endplate of L4. No acute vertebral fractur es identified. No listhesis. No pars defects.. There are no lytic osseous lesions evident. There is advanced chronic disc space narrowing at L5-S1 level noted. INDIVIDUAL LEVELS: T12-L1:No disc herniation nor canal stenosis. Facet joints unremarkable. No foraminal stenosis. L1-2: No disc herniation nor canal stenosis. Facet joints unremarkable. No foraminal stenosis. L2-3: No disc herniation nor canal stenosis. Facet joints unremarkable. No Foraminal stenosis L3-4: Symmetrical annular bulging. No prominent disc herniation. Central canal dimensions lower no rmal. Mild degenerative changes in the facet joints. No significant foraminal stenosis. L4-5: Normal disc height. Broad annular bulging. Moderate central spinal canal stenosis mild bilat eral foraminal stenosis. Mild degenerative changes both facet joints. L5-S1: Chronic disc space narrowing. No significant disc herniation or central canal stenosis. The re is mild bilateral foraminal stenosis The visualized sacroiliac joints and sacrum appear unremarkable. PARASPINAL SOFT TISSUES: There is a 4 x 3.8 cm cystic lesion in the right adnexa noted. IMPRESSION: 1. Findings as discussed per individual level above. There is significant central spinal canal steno sis at L4-5 level. There is also some foraminal stenosis at a few levels as described above. 2. There is a 4 x 3.8 cm right adnexal cystic lesion should be further studied with pelvic ultrasound . 3. Other findings as above. RADIATION DOSE DELIVERED: 612.12mGy.cm Total DLP DATA REPOSITORY: All CT scans at this facility are submitted to the National Radiology Data Registry (NRDR) Dose Index Registry (DIR) with the [employer] (ACR). RADIATION OPTIMIZATION: All CT scans at this facility use at least one of these dose optimization te chniques: automated exposure control; mA and/or kV adjustment per patient size (includes targeted exa ms where dose is matched to clinical indication); or iterative reconstruction.
[2024-09-08 22:06] LABS: BE (Venous) -2 mmol/L (-2-3); HCO3 (Venous) 24 mmol/L (23-28); O2 Sat (Venous) 89 %; TCO2 (Venous) 22 mmol/L (24-29); pCO2 (Venous) 44 mmHg (41-51); pH (Venous) 7.35 (7.31-7.41); pO2 (Venous) 59 mmHg
--- NOTE | 2024-09-08 22:07 | W.PM.HP.N ---
Date of service: 09/08/24 Time of Service: 21:20 Assessment and Plan Assessment and plan (1) Hypoglycemia: Status: Acute Assessment and plan: Odd presentation with general malaise and hypoglycemia Especially odd is the combination with >1000 glycosuria No insulin or hypoglycemic use such as SLGT2i. No history of bypass or other cause of short gut (which could also explain anion gap by d-lactose) She has been eating, but ketones in the urine. Alcoholic ketoacidosis could explain this and anion gap. She denies EtOH but will get levels. Follow up fingersticks have been in 200s. Concern from patient and ED is occult infection. Antibiotics were started. However the overall picture is not c/w sepsis. Her symptoms are more subacute. I don't think it makes sense to continue antibiotics. Will observe, follow (2) High anion gap: Status: Acute Assessment and plan: See above l-lactate not high She denies ingestion. Getting VBG to assess for actual acidosis, normal Will follow (3) Chronic back pain: Status: Acute Assessment and plan: Given her report of occult MRSA infection of previous device and her chronic pain, CT imaging being done She does not have any signs of local infection apparent on exam. (4) Hypertension: Assessment and plan: continue outpatient therapy (5) Major depression: Assessment and plan: continue outpatient therapy (6) Pelvic cyst in female: Status: Acute Assessment and plan: No pain in this area, consider outpatient f/u (7) DVT prophylaxis: Status: Acute Assessment and plan: enoxaparin History of Present Illness History of Present Illness Chief Complaint: malaise/fatigue Narrative: 59-year-old female with history of depression, chronic low back pain, HTN, and with recent spinal cord stimulator that was replaced in early july at [facility] who presents with persistent and worsening fatigue and malaise for the past several weeks. She can't put a finger on it, she just doesn't feel good. He has not had fevers/chills. She is eating, and hasn't lost weight. She has low emely pain chronically, but not worsening focal pain in the area of her surgery. Wounds healing. She just hasn't felt well since her surgery. She hasn't ingested anything other than food and her regular medications. No drugs or EtOH. She gets her meds bubble-packed from [facility] and lives alone she she is sure she hasn't mixed them up. She has been eating, urinating, and stooling normally. Some cough, but this isn't new. No SOB. No other URI symptoms. She states she felt similarly in 2018 when she had a device removed because it was infected. This is why she is worried. She was seen at [facility] at the end of july and given doxycycline over her concern for infection, though her provider was skeptical she had an infection. This didn't help. Review of Systems All systems reviewed & are unremarkable except as noted in HPI and below Respiratory Respiratory: Reports cough and Denies excessive phlegm production [facility] All Active Problems (Updated 09/08/24 @ 23:55 by Bayron Coughlin) Pelvic cyst in female (Acute) DVT prophylaxis (Acute) High anion gap (Acute) Hypoglycemia (Acute) Chronic back pain (Acute) Medical History (Updated 09/08/24 @ 23:55 by Bayron Coughlin) H/O methicillin resistant Staphylococcus aureus 2018 at [facility] ADHD Urticaria PTSD (post-traumatic stress disorder) Major depression Hypertension Surgical History (Updated 09/09/24 @ 00:04 by Bayron Coughlin) Status post bilateral salpingectomy ectopic S/P placement of nerve stimulator lower back, battery replaced July 2024, [facility] Social History (Updated 09/08/24 @ 22:16 by Bayron Coughlin) Smoking/Tobacco Use Status: Never Smoking risk assessment performed?: Yes Alcohol Intake: never Do you feel safe in your relationship?: Yes Additional Social history: formerly worked at [employer] in [employer]. Lives in [place] Meds Allergies and Home Medications Allergies Allergy/AdvReac Type Severity Reaction Status Date / Time vancomycin Allergy Severe Anaphylaxis Unverified 09/08/24 14:36 cat dander Allergy Hives Unverified 09/08/24 14:36 erythromycin base Allergy Hives Unverified 09/08/24 14:36 gabapentin Allergy Hives Unverified 09/08/24 14:36 hydrocodone Allergy Unknown Unverified 09/08/24 14:36 latex Allergy Unknown Unverified 09/08/24 14:36 Milk Containing Products Allergy Other (See Unverified 09/08/24 14:36 (Dairy) (Milk Containing Comment) Products) Home Medications ?Medication ?Instructions ?Recorded ?Confirmed ?Type Tylenol Extra Streng 500 mg PO 1500 12/01/08 12/01/08 09/08/24 History acetaminophen 325 mg tablet 2 day PO BID 12/06/16 09/08/24 History (Tylenol) bisacodyl 5 mg tablet,delayed 5 mg PO DAILY PRN 12/06/16 09/08/24 History release cetirizine 10 mg capsule (Zyrtec) 10 mg PO BID 12/06/16 09/08/24 History fluticasone propionate 50 16 gm NS DAILY 12/06/16 09/08/24 History mcg/actuation nasal spray,suspension pregabalin 150 mg capsule (Lyrica) 150 mg PO DAILY 12/06/16 09/08/24 History vilazodone 20 mg tablet (Viibryd) 20 mg PO DAILY 12/06/16 09/08/24 History hydrochlorothiazide 25 mg tablet 25 mg PO DAILY 09/08/24 09/08/24 History lisinopril 40 mg tablet 40 mg PO DAILY 09/08/24 09/08/24 History Exam Narrative Exam Narrative: GEN: Alert and oriented x 4, pleasant and cooperative, gives vague history. No acute distress at rest. HEENT: Head atraumatic. Conjunctiva clear, no icterus. PEERL, dilated in dark room, EOMI. no rhinorrhea. MMM, OP benign. Neck is supple with no masses or lymphadenopathy, trachea midline LUNGS: CTAB with normal effort CV: RRR with no murmurs, gallops, or rubs. ABD: active bowel sounds, soft, nontender and nondistended. No masses. EXT: no cyanosis, clubbing, or edema MSK: No joint redness or swelling. No spinal point tenderness. No CVAT NEURO: CN 2-12 grossly intact. Normal movement of 4 extremities. Normal speech and coordination. No tremor SKIN: No rashes or open wounds. Surgical wounds well healed, not tender in area of scars PSYCH: Normal mood, affect is somewhat exaggeratedly friendly, goofy. No hallucinations Results Imaging Abdomen CT scan report/results: report reviewed CT scan - pelvis: report reviewed Imaging Studies: CT Lumbar spine: 1. Progressing lumbar spinal stenosis 2. Right adnexal cystic lesion. Follow-up with pelvic ultrasound Labs 09/08/24 17:04 09/08/24 17:04 Labs: Laboratory Results - last 24 hr 09/08/24 09/08/24 09/08/24 17:04 18:31 18:42 WBC 4.62 RBC 4.46 Hgb 13.5 Hct 40.5 MCV 91 MCH 30.3 MCHC 33.3 RDW 12.5 Plt Count 377 MPV 9.9 Immature Gran % 0.2 Neutrophils % 56.9 Lymphocytes % 31.0 Monocytes % 9.3 Eosinophils % 1.3 Basophils % 1.3 Nucleated RBC % 0.0 Absolute Neutrophils 2.63 Absolute Lymphocytes 1.43 Absolute Monocytes 0.43 Absolute Eosinophils 0.06 Absolute Basophils 0.06 D-Dimer 782 H VBG Lactate 1.0 Sodium 137 Potassium 4.0 Chloride 98 Carbon Dioxide 21.6 Anion Gap 17.4 H BUN 15 Creatinine 0.8 Est GFR (CKD-EPI 2020) 85.35 Glucose 44 L* Calcium 9.0 Serum HCG, Qual Negative Urine Color Urine Clarity Urine pH Ur Specific [place] Urine Protein Urine Ketones Urine Blood Urine Nitrite Urine Bilirubin Urine Urobilinogen Ur Leukocyte Esterase Urine RBC Urine WBC Ur Epithelial Cells Urine Crystals Urine Bacteria Urine Casts Urine Mucus Ur Culture Indicated? Urine Glucose COVID-19 Source Nasopharynx SARS-CoV-2 (PCR) Negative Influenza Type A (PCR) Negative Influenza Type B (PCR) Negative RSV (PCR) Negative 09/08/24 19:54 WBC RBC Hgb Hct MCV MCH MCHC RDW Plt Count MPV Immature Gran % Neutrophils % Lymphocytes % Monocytes % Eosinophils % Basophils % Nucleated RBC % Absolute Neutrophils Absolute Lymphocytes Absolute Monocytes Absolute Eosinophils Absolute Basophils D-Dimer VBG Lactate Sodium Potassium Chloride Carbon Dioxide Anion Gap BUN Creatinine Est GFR (CKD-EPI 2020) Glucose Calcium Serum HCG, Qual Urine Color Yellow Urine Clarity Clear Urine pH 5.5 Ur Specific [place] <= 1.005 Urine Protein Negative Urine Ketones 40 H Urine Blood Small H Urine Nitrite Negative Urine Bilirubin Negative Urine Urobilinogen 0.2 Ur Leukocyte Esterase Negative Urine RBC 0-2 Urine WBC Negative Ur Epithelial Cells Rare Urine Crystals Negative Urine Bacteria Rare Urine Casts Negative Urine Mucus Negative Ur Culture Indicated? No Urine Glucose >=1000 H COVID-19 Source SARS-CoV-2 (PCR) Influenza Type A (PCR) Influenza Type B (PCR) RSV (PCR) Last Vital Signs Temp 36.7 C 09/08/24 14:34 Pulse 70 09/08/24 20:41 Resp 20 09/08/24 14:34 BP 106/60 09/08/24 20:41 Pulse Ox 99 09/08/24 20:41 Time Spent Time spent with Patient: 55-74 minutes Time was spent: preparing to see the patient(eg.review tests), obtaining and/or reviewing separately otained hiistory, ordering medications,tests, procedures, referring, communicating with other health neonatal intensive care nurse, indepentently interpreting results, counseling the patient and care coordination
--- NOTE | 2024-09-08 22:26 | DI.CT_ITS ---
Exam(s) CT CHEST PE CTA EXAM: CT CHEST PE CTA CLINICAL HISTORY: Positive dimer. TECHNIQUE: Imaging Protocol: CT angiography of the chest was performed using pulmonary embolus madi col. Multi planar reconstructions were performed. CONTRAST MATERIAL: Intravenous: Omnipaque 350 Contrast volume: 100 cc COMPARISON: CT CT LUMBAR SPINE WO from 09/08/2024 FINDINGS: CHEST: PULMONARY ARTERIES: There are no intraluminal filling defects to suggest acute pulmonary emboli. LUNGS: There are no infiltrates nor evidence of pulmonary infarction.. There are no pleural effusions . MEDIASTINUM: There is no hilar nor mediastinal adenopathy. Visualized thyroid unremarkable. CARDIAC: Heart size is upper normal. There is no pericardial effusion.Caliber of the thoracic aorta is within normal limits. Dissection there is no significant shift of the interventricular septum. PARTIALLY VISUALIZED UPPERMOST ABDOMEN: No obvious findings OSSEOUS: No significant osseous lesions.Incidentally noted are thoracic epidural leads.. IMPRESSION: 1. No evidence of acute pulmonary emboli. No evidence of pulmonary infarction.No pleural effusions. No infiltrates. 2. Negative study. RADIATION DOSE DELIVERED: 67.59mGy.cm Total DLP DATA REPOSITORY: All CT scans at this facility are submitted to the National Radiology Data Registry (NRDR) Dose Index Registry (DIR) with the [employer] (ACR). RADIATION OPTIMIZATION: All CT scans at this facility use at least one of these dose optimization te chniques: automated exposure control; mA and/or kV adjustment per patient size (includes targeted exa ms where dose is matched to clinical indication); or iterative reconstruction.
[2024-09-08 22:34] LABS: ETHANOL BLOOD < 3.0 mg/dL (<10)
[2024-09-08 22:52] LABS: Lab Add On Test DONE
--- NOTE | 2024-09-08 23:45 | DI.VRAD_ITS ---
PROCEDURE INFORMATION: Exam: CT Lumbar Spine Without Contrast Exam date and time: 09/08/2024 9:28 PM Age: 59 years old Clinical indication: Other: Spinal stimulator TECHNIQUE: Imaging protocol: Computed tomography of the lumbar spine without contrast. Total images: [id number] COMPARISON: CT LUMBAR SPINE W 12/23/2022 4:29 PM FINDINGS: Tubes, catheters and devices: Incompletely visualized neurostimulator posterior left subcutaneous tissues. Bones/joints: Interval but nonacute L4 superior endplate compression deformity with secondary Schmorl's node. Severe L5-S1 disc space narrowing with vacuum disc. No acute fracture. Mild central stenosis T11-12 secondary to calcified ligamentum flavum, unchanged. Calcified posterior annulus minimally impresses upon the thecal sac T12-L1 and L1-L2, unchanged. Disc bulging and ligamentum flavum hypertrophy cause mild central stenosis at L2-L3, unchanged. Disc bulging and ligamentum flavum hypertrophy causing moderate to significant central stenosis L3-L4, progressed since the prior study. Disc bulging and ligamentum flavum hypertrophy causing significant central stenosis L4-L5, progressed since the prior study. Bilateral laminectomy L5. Disc osteophyte complex narrows the anterior thecal sac at L5-S1. Significant foraminal stenosis on the right at L5-S1 and on the left at L4-L5 and L5-S1 similar to the prior study. Liver: Coarse right hepatic calcification. Reproductive: 4 x 3.7 cm right adnexal cystic lesion with a smooth slightly thickened wall. Right tubal ligation clip. Soft tissues: Paraspinal soft tissues are unremarkable. IMPRESSION: 1. Progressing lumbar spinal stenosis 2. Right adnexal cystic lesion. Follow-up with pelvic ultrasound. Dictated and Authenticated by: Jamison Hatch MD. Orderin Lucinda Verma MD
--- NOTE | 2024-09-08 23:47 | W.PC.ACHO ---
Registration Status: Primary Language: Preferred Language: ED Information & Data Chief Complaint RespSymp 09/08/24 16:08 Other Complaint GenMedical 09/08/24 14:30 Triage Note Fatigue, episodic chills, 09/08/24 14:30 cough (dry, unproductive), general unwell sensation. symptoms started 2 weeks ago and have gotten worse over time. Spinal cord stimulator placed beginning of July, surgical wound present L lumbar area. Medical / Surgical History (Last Updated 09/08/24 @ 22:15 by Bayron Coughlin) H/O methicillin resistant Staphylococcus aureus ADHD Urticaria PTSD (post-traumatic stress disorder) Major depression Hypertension (Last Updated 09/08/24 @ 22:11 by Bayron Coughlin) S/P placement of nerve stimulator Most Recent Vital Signs Temperature 36.7 C 09/08/24 14:34 Pulse 60 09/08/24 23:30 Respiratory Rate 20 09/08/24 14:34 Respiratory Effort Normal 09/08/24 19:05 Respiratory Depth Normal 09/08/24 19:05 Blood Pressure 132/58 L 09/08/24 23:21 Blood Pressure Mean 87 09/08/24 23:21 Blood Pressure Position Sitting 09/08/24 14:34 Pulse Oximetry 98 09/08/24 23:30 Oxygen Delivery Method Room Air 09/08/24 14:34 Oxygen Flow Rate 0 09/08/24 14:34 Allergies vancomycin Allergy (Severe, Unverified 09/08/24 14:36) Anaphylaxis cat dander Allergy (Unverified 09/08/24 14:36) Hives erythromycin base Allergy (Unverified 09/08/24 14:36) Hives gabapentin Allergy (Unverified 09/08/24 14:36) Hives hydrocodone Allergy (Unverified 09/08/24 14:36) Unknown latex Allergy (Unverified 09/08/24 14:36) Unknown Milk Containing Products (Dairy) (Milk Containing Products) Allergy (Unverified 09/08/24 14:36) Other (See Comment) Intolerance Active Medications Generic Name Dose Route Start Last Admin Trade Name Freq PRN Reason Stop Dose Admin Dextrose/Sodium Chloride 1,000 mls @ 1,000 mls/hr 09/08/24 17:45 09/08/24 20:09 Dextrose 5%-Ns IV Infused INFUSION VIDYA Infusion Iohexol 70 ml 09/08/24 21:45 09/08/24 21:36 Omnipaque 350 Mg/Ml 100 Ml Btl IJ 10/08/24 23:59 70 ml DIRECTED VIDYA Administration Sodium Chloride 50 ml 09/08/24 21:45 09/08/24 21:38 Normal Saline - Diluent 50 Ml Vial IJ 50 ml .FOR DI USE VIDYA Administration IV IV Catheter Type [Left Saline Lock Antecubital] IV Catheter Gauge [Left 18 Antecubital] Diet Orders Category Date Time Status Regular/Normal [DIET] Nutrition 09/09/24 Breakfast Ordered Diagnostics 09/08/24 09/08/24 09/08/24 Range/Units 22:50 21:55 19:54 WBC (4.4-10.8) 10^3/uL RBC (3.93-5.22) 10^6/uL Hgb (11.2-15.7) g/dL Hct (36.0-46.0) % MCV (80-95) fL MCH (27.0-33.0) pg MCHC (32.0-36.0) % RDW (11.7-14.6) % Plt Count (130-400) 10^3/uL MPV (8.0-11.0) fL Immature Gran % % Neutrophils % % Lymphocytes % % Monocytes % % Eosinophils % % Basophils % % Nucleated RBC % (0.0-0.3) % Absolute Neutrophils (1.2-6.7) 10^3/uL Absolute Lymphocytes (1.2-3.4) 10^3/uL Absolute Monocytes (0.1-0.8) 10^3/uL Absolute Eosinophils (0.0-0.7) 10^3/uL Absolute Basophils (0.0-0.2) 10^3/uL D-Dimer (<500) ng/mlFEU VBG pH 7.35 (7.31-7.41) VBG pCO2 44 (41-51) mmHg VBG pO2 59 mmHg VBG HCO3 24 (23-28) mmol/L VBG Total CO2 22 L (24-29) mmol/L VBG O2 Saturation 89 % VBG Base Excess -2 (-2-3) mmol/L VBG Lactate (<or=2.0) mmol/L Sodium (136-145) mmol/L Potassium (3.5-5.1) mmol/L Chloride (98-107) mmol/L Carbon Dioxide (21.0-32.0) mmol/L Anion Gap (3-11) mmol/L BUN (7-18) mg/dL Creatinine (0.55-1.02) mg/dL Est GFR (CKD-EPI 2020) (mL/min/1.73m2) Glucose (74-106) mg/dL Calcium (8.5-10.1) mg/dL Serum HCG, Qual Urine Color Yellow (Yellow) Urine Clarity Clear (Clear) Urine pH 5.5 (5-8) Ur Specific [place] <= 1.005 (1.005-1.025) Urine Protein Negative (Neg-Trace) mg/dL Urine Ketones 40 H (Negative) mg/dL Urine Blood Small H (Negative) Urine Nitrite Negative (Negative) Urine Bilirubin Negative (Negative) Urine Urobilinogen 0.2 (Up to 0.2) mg/dL Ur Leukocyte Esterase Negative (Negative) Urine RBC 0-2 (0-2) HPF Urine WBC Negative (0-5) HPF Ur Epithelial Cells Rare (Negative) HPF Urine Crystals Negative (Negative) HPF Urine Bacteria Rare (Negative) HPF Urine Casts Negative (Negative) LPF Urine Mucus Negative (Negative) Ur Culture Indicated? No Urine Glucose >=1000 H (Negative) mg/dL Urine Opiates Screen Pending Ur Barbiturates Screen Pending Ur Tricyclics Screen Pending Ur Amphetamines Screen Pending U Benzodiazepines Scrn Pending Urine Cocaine Screen Pending Ur THC Screen Pending Ethyl Alcohol < 3.0 (<10) mg/dL COVID-19 Source SARS-CoV-2 (PCR) (Negative) Influenza Type A (PCR) (Negative) Influenza Type B (PCR) (Negative) RSV (PCR) (Negative) Add-On Test Request DONE 09/08/24 09/08/24 09/08/24 Range/Units 18:42 18:31 17:04 WBC 4.62 (4.4-10.8) 10^3/uL RBC 4.46 (3.93-5.22) 10^6/uL Hgb 13.5 (11.2-15.7) g/dL Hct 40.5 (36.0-46.0) % MCV 91 (80-95) fL MCH 30.3 (27.0-33.0) pg MCHC 33.3 (32.0-36.0) % RDW 12.5 (11.7-14.6) % Plt Count 377 (130-400) 10^3/uL MPV 9.9 (8.0-11.0) fL Immature Gran % 0.2 % Neutrophils % 56.9 % Lymphocytes % 31.0 % Monocytes % 9.3 % Eosinophils % 1.3 % Basophils % 1.3 % Nucleated RBC % 0.0 (0.0-0.3) % Absolute Neutrophils 2.63 (1.2-6.7) 10^3/uL Absolute Lymphocytes 1.43 (1.2-3.4) 10^3/uL Absolute Monocytes 0.43 (0.1-0.8) 10^3/uL Absolute Eosinophils 0.06 (0.0-0.7) 10^3/uL Absolute Basophils 0.06 (0.0-0.2) 10^3/uL D-Dimer 782 H (<500) ng/mlFEU VBG pH (7.31-7.41) VBG pCO2 (41-51) mmHg VBG pO2 mmHg VBG HCO3 (23-28) mmol/L VBG Total CO2 (24-29) mmol/L VBG O2 Saturation % VBG Base Excess (-2-3) mmol/L VBG Lactate 1.0 (<or=2.0) mmol/L Sodium 137 (136-145) mmol/L Potassium 4.0 (3.5-5.1) mmol/L Chloride 98 (98-107) mmol/L Carbon Dioxide 21.6 (21.0-32.0) mmol/L Anion Gap 17.4 H (3-11) mmol/L BUN 15 (7-18) mg/dL Creatinine 0.8 (0.55-1.02) mg/dL Est GFR (CKD-EPI 2020) 85.35 (mL/min/1.73m2) Glucose 44 L* (74-106) mg/dL Calcium 9.0 (8.5-10.1) mg/dL Serum HCG, Qual Negative Urine Color (Yellow) Urine Clarity (Clear) Urine pH (5-8) Ur Specific [place] (1.005-1.025) Urine Protein (Neg-Trace) mg/dL Urine Ketones (Negative) mg/dL Urine Blood (Negative) Urine Nitrite (Negative) Urine Bilirubin (Negative) Urine Urobilinogen (Up to 0.2) mg/dL Ur Leukocyte Esterase (Negative) Urine RBC (0-2) HPF Urine WBC (0-5) HPF Ur Epithelial Cells (Negative) HPF Urine Crystals (Negative) HPF Urine Bacteria (Negative) HPF Urine Casts (Negative) LPF Urine Mucus (Negative) Ur Culture Indicated? Urine Glucose (Negative) mg/dL Urine Opiates Screen Ur Barbiturates Screen Ur Tricyclics Screen Ur Amphetamines Screen U Benzodiazepines Scrn Urine Cocaine Screen Ur THC Screen Ethyl Alcohol (<10) mg/dL COVID-19 Source Nasopharynx SARS-CoV-2 (PCR) Negative (Negative) Influenza Type A (PCR) Negative (Negative) Influenza Type B (PCR) Negative (Negative) RSV (PCR) Negative (Negative) Add-On Test Request [id number] Documentation Fingerstick Glucose Start: 09/08/24 19:17 Freq: .Stat Status: Active Protocol: Activity Type Activity Date Activity User E-sign Co-sign Detail Recorded Client Recorded Date Recorded By Document 09/08/24 19:59 BKG DAEMON(3) [id number] 09/08/24 20:00 BKG DAEMON(4) Intake and Output - 24 Hour Total 09/08/24 14:28 thru 09/08/24 21:04 Intake Total 2400 Balance 2400 Weight 68.039 kg Intake: IV 2400 Falls Risk Assessment History of Falls No History 09/08/24 14:34 Contributing Factors No Factors 09/08/24 14:34 Ambulatory Aids Independent 09/08/24 14:34 Tubes/Lines None 09/08/24 14:34 Gait Evaluation No gait disturbance 09/08/24 14:34 Cognition No cognitive impairment 09/08/24 14:34 Fall Total Score 0 09/08/24 14:34 Level of Risk Standard/Low Risk 09/08/24 14:34 Problems (Last Updated 09/08/24 @ 22:15 by Bayron Coughlin) DVT prophylaxis (Acute) High anion gap (Acute) Hypoglycemia (Acute) Chronic back pain (Acute) v v v v v v v v v Sending and/or Receiving Nurses: Please use comment section below to note any information pertinent to the patient hand-off not included above. Information / Comments: general malaise w/ fever, chills, cough x few weeks - gotten worse over time. A&O, independent. spinal cord stimulator in place, surgical wound present. In ED got: 1L D5/NS, 1L NS, cefepime, linezolid. UA collected, drug screen pending. 18G LAC Report received from: MICHAEL, Jd Moseley @ [id number]
[2024-09-09] VITALS: BP 100/70; PULSE 68; RESP 16; TEMP 36.3; O2SAT 98
--- NOTE | 2024-09-09 00:08 | DI.VRAD_ITS ---
PROCEDURE INFORMATION: Exam: CT Thoracic Spine Without Contrast Exam date and time: 09/08/2024 9:32 PM Age: 59 years old Clinical indication: Other: Spinal stimulator TECHNIQUE: Imaging protocol: Computed tomography of the thoracic spine without contrast. Total images: [id number] COMPARISON: CT THORACIC SPINE W 12/23/2022 4:29 PM FINDINGS: Tubes, catheters and devices: Intact neural stimulator posterior thecal sac T8/T9 level, unchanged in position. Artifact limited canal evaluation at this level. Bones/joints: Calcified T9-10 disc. Mild chronic concave superior endplate deformities T3-T5. No acute compression fracture. Mild upper thoracic dextroscoliosis. Posterior elements intact. Discs/Spinal canal/Neural foramina: No significant spinal stenosis. Mild stenosis T11-12. Spinal epidural space: No gross epidural collection. Soft tissues: No paraspinal mass. Vasculature: Pulmonary arterial tree (see chest CTA report). IMPRESSION: No acute thoracic spine abnormality. Dictated and Authenticated by: Jamison Hatch MD. Orderin Lucinda Verma MD
--- NOTE | 2024-09-09 00:24 | DI.VRAD_ITS ---
PROCEDURE INFORMATION: Exam: CTA Chest With Contrast Exam date and time: 09/08/2024 9:03 PM Age: 59 years old Clinical indication: Other: Positive dimer TECHNIQUE: Imaging protocol: Computed tomographic angiography of the chest with contrast. Exam focused on the arteries. 3D rendering (Not supervised by radiologist): MIP and/or 3D reconstructed images were created by the technologist. Total images: 1461 Contrast material: OMNIPAQUE 350; Contrast volume: 70 ml; Contrast route: INTRAVENOUS (IV); COMPARISON: CR XR PORTABLE CHEST AP 09/08/2024 4:59 PM FINDINGS: Tubes, catheters and devices: Neurostimulator lower thoracic canal. Pulmonary arteries: No filling defect in the pulmonary arterial tree. Aorta: No aortic aneurysm or dissection. Thyroid: Subcentimeter left thyroid nodule. Lungs: No consolidation, mass or suspicious pulmonary nodule. Pleural spaces: No pleural effusion or pneumothorax. Heart: No pericardial effusion. Coronary arteries: No coronary calcification. Lymph nodes: No mediastinal, hilar or axillary adenopathy. Liver: Hepatic steatosis. Coarse right hepatic granuloma. Bones/joints: No acute bony abnormality. Soft tissues: No significant finding. IMPRESSION: No acute findings/PE. Dictated and Authenticated by: Jamison Hatch MD. Orderin Lucinda Verma MD
[2024-09-09 00:50] LABS: *AMPHETAMINES SCREEN URINE Negative (Negative); *BARBITURATES SCREEN URINE Negative (Negative); *BENZODIAZEPINES SCREEN URINE Negative (Negative); Cannabinoids THC Negative (Negative); Cocaine Screen,Urine Negative (Negative); METHADONE URINE SCREEN Negative (Negative); OPIATES URINE SCREEN Negative (Negative)
[2024-09-09 00:54] LABS: Tricyclic Antidepressants Negative (Negative)
[2024-09-09] MEDS: POTASSIUM CHLORIDE/D5-0.45NACL 1,000 ML 125 MEQ IV (01:23)
[2024-09-09] MEDS: Acetaminophen 500 MG TAB PO (07:27)
[2024-09-09] MEDS: hydroCHLOROthiazide 25 MG TAB PO (07:34)
[2024-09-09] MEDS: Lisinopril 20 MG TAB 40 MG PO (07:34)
[2024-09-09] MEDS: Pregabalin 150 MG CAP PO (07:34)
[2024-09-09] MEDS: Enoxaparin 40 MG/0.4 ML SYR SC (07:34)
[2024-09-09 08:13] LABS: Anion Gap 7.5 mmol/L (3-11); BUN 9 mg/dL (7-18); CO2 27.5 mmol/L (21.0-32.0); CREATININE 0.8 mg/dL (0.55-1.02); Calcium 7.9 mg/dL (8.5-10.1); Chloride 108 mmol/L (98-107); Estimated GFR 85.35 (mL/min/1.73m2); Glucose 163 mg/dL (74-106); Potassium 3.8 mmol/L (3.5-5.1); Sodium 143 mmol/L (136-145)
[2024-09-09 08:17] LABS: Hemoglobin A1C 5.4 % (<5.7)
[2024-09-09 09:11] VITALS: BP 111/70; PULSE 88; RESP 16; TEMP 36.8; O2SAT 96
--- NOTE | 2024-09-09 09:45 | PDOC.CMIN ---
Date of service: 09/09/24 Time of Service: 09:45 Care Management Initial Assmt Initial Assessment Reason for Hospitalization: hypoglycemia Functional Status/Living Situation Patient Presentation: Mitali lives alone in [place] in an old farmhouse.She has no children and has only one sister who lives in [place]. She does have some local friends and neighbors that she can rely on for assistance if needed. 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 She has only had the job since April and really likes it, although she admitted it is very physically demanding. She shared that she had to work hard to become strong enough to do the job. Mitali was admitted with hypoglycemia (BS 44) and a high urine glucose, with no obvious explanation for either. She was treated with D5 in the ED, improved and will be discharged home later today.. Town of Residence: [place] Resides with: Alone Significant Other/Family: Out of area (sister in [place]) Instrumental Activities of Daily Living (ADLs): Independent Medications Medication Management: No Issues/Barriers identified Advance Directives Advance Directives: Do you have an Advance Directive: Y 12/12/16 09:03 AD On File at [facility]: N 09/18/16 12:16 Date Asked 09/08/24 09/08/24 14:48 AD Date Reviewed COLST On File at [facility] COLST Date Scanned Code Status Resuscitation Status Full Code Portal Pt does not currently have a portal and education provided: Yes Insurance Coverage/Financial Issues Insurance: [place] Care Team Visit Care Team Role Provider Type Caleb Schneider MD MD [facility] STAFF PHYSICIAN Jessica Colby Primary Care Provider NON-[facility] STAFF PHYSICIAN Bayron Jane MD Emergency Provider [facility] STAFF PHYSICIAN Bayorn Coughlin Admit Provider [facility] STAFF PHYSICIAN Attending Provider Discharge Potential Discharge Needs: PCP F/U Appt Anticipated Barriers to Discharge: None Identified Patient/Family Education Needs: Review discharge instructions, discuss Ask Me Three Transportation: Private vehicle Plan: Anticipate Mitali will be discharged home with no new services when medically cleared. She will follow up with her community providers and plan of care and transport with a friend. CM will follow and continue to support discharge planning. Social Determinants of Health Screening Will the Patient Participate in the Screening?: Declined to provide PFSH All Active Problems (Updated 09/08/24 @ 23:55 by Bayron Coughlin) Pelvic cyst in female (Acute) DVT prophylaxis (Acute) High anion gap (Acute) Hypoglycemia (Acute) Chronic back pain (Acute) Medical History (Updated 09/08/24 @ 23:55 by Bayron Coughlin) H/O methicillin resistant Staphylococcus aureus 2018 at [facility] ADHD Urticaria PTSD (post-traumatic stress disorder) Major depression Hypertension Surgical History (Updated 09/09/24 @ 00:04 by Bayron Coughlin) Status post bilateral salpingectomy ectopic S/P placement of nerve stimulator lower back, battery replaced July 2024, [facility] Social History (Updated 09/08/24 @ 22:16 by Bayron Coughlin) Smoking/Tobacco Use Status: Never Smoking risk assessment performed?: Yes Alcohol Intake: never Housing: house Do you feel safe in your relationship?: Yes Additional Social history: formerly worked at [employer] in [employer]. Lives in [place]
[2024-09-09] MEDS: Vilazodone 20 MG TAB PO (10:30)
[2024-09-09 15:07] LABS: Bilirubin Negative (Negative); Blood Trace-intact (Negative); Clarity Clear (Clear); Glucose Negative (Negative); Ketones Negative (Negative); Leukocyte Esterase Negative (Negative); Nitrite Negative (Negative); Urobilinogen 0.2 mg/dL (Up to 0.2)
--- NOTE | 2024-09-09 15:13 | CHAPLAIN ---
I had a brief visit with Mitali. She was resting in bed and was very pleasant. I explained my role and offered support.
[2024-09-09 15:31] LABS: Bacteria Rare HPF (Negative); C & S Indicated? No; Casts Negative LPF (Negative); Crystals Negative HPF (Negative); Epithelial Cells Negative HPF (Negative); Mucus Negative (Negative); WBC Negative HPF (0-5)
--- NOTE | 2024-09-09 15:35 | DSE_ITS ---
Date of service: 09/09/24 Time of Service: 15:35 DS: Diagnosis Discharge Diagnosis (1) Hypoglycemia: Status: Acute (2) High anion gap: Status: Acute (3) Chronic back pain: Status: Acute (4) Hypertension: (5) Major depression: (6) Pelvic cyst in female: Status: Acute (7) DVT prophylaxis: Status: Acute Discharge Plan Disposition Patient Disposition: Home Condition: Good Discharge Details Reason For Visit: hypoglycemia, anion gap Admit Date/Time: 09/08/24 22:27 Admit Provider: Bayron Coughlin Attending Provider: Bayron Coughlin [facility] Hospital Course: Patient initially presented with worsening fatigue and believes over the last few weeks but she was unable to explain. In the emergency department she was found to be hypoglycemic with a blood glucose of 44 but oddly enough also had significant glucose in her urine. Patient denied taking any exogenous substances such as insulin or Jardiance that could explain these lab findings. She was given D5 in the emergency department and since that time had significant improvement in her blood glucose levels. Additionally, CT of her spinal sti mulator did not show any acute findings. At this time insulin levels are pending. Given the patient has significant improvement of her symptoms without exact explanation of her lab findings it was determined that she was stable for discharge home. Home Meds and New Rx's Prescriptions: Continued TYLENOL EXTRA STRENG 500 MG tablet 500 mg PO 1500 12/01/08 acetaminophen [Tylenol] 325 MG tablet 2 day PO BID bisacodyl 5 MG tablet,delayed release (DR/EC) 5 mg PO DAILY PRN fluticasone propionate 16 GM spray,suspension 16 gm NS DAILY pregabalin [Lyrica] 150 MG capsule 150 mg PO DAILY Zyrtec 10 MG capsule 10 mg PO BID vilazodone [Viibryd] 20 MG tablet 20 mg PO DAILY lisinopril 40 mg tablet 40 mg PO DAILY hydrochlorothiazide 25 mg tablet 25 mg PO DAILY Discharge Instructions Activity:: Activity as Tolerated Equipment/Supplies:: No Equipment Needed Diet:: As Tolerated Discharge Orders Discharge Orders: Discharge Order (Routine); Ordered 09/09/24 Ordered By: Caleb Schneider DS: Summary Time Spent with Patient providing and/or coordinating discharge services: Greater than 30 minutes Status at Discharge Functional status at discharge: independent ambulation Overall status at discharge: patient is back to baseline Mental Status: mental status grossly normal Speech and Movement: speech and movement normal Mood: congruent mood Affect: normal affect Quality:SDOH Health Related Social Needs: No Data to Display Exam Narrative Exam Narrative: Well-appearing female laying in bed in no acute distress, ANO x 4, heart regular rhythm, lungs good auscultation bilaterally, abdomen soft, nontender, nondistended Psych Mental Status: mental status grossly normal Speech and Movement: speech and movement normal Mood: congruent mood Affect: normal affect DS: Data Vitals/I&O Vitals and I&O: Vital Signs Temperature 98.2 F 09/09/24 09:11 Temperature Source Temporal Artery Scan 09/09/24 09:11 Pulse 88 09/09/24 09:11 Pulse Rhythm Regular 09/09/24 00:00 Respiratory Rate 16 09/09/24 09:11 Respiratory Effort Normal, Non-Labored 09/09/24 00:00 Respiratory Depth Normal 09/09/24 00:00 Respiratory Pattern Normal 09/09/24 00:00 Blood Pressure 111/70 09/09/24 09:11 Blood Pressure Mean 83 09/09/24 09:11 Blood Pressure Position Sitting 09/08/24 14:34 Pulse Oximetry 96 09/09/24 09:11 Oxygen Delivery Method Room Air 09/09/24 09:11 Oxygen Flow Rate 0 09/09/24 09:11 Pain Level 8 09/09/24 09:20 Intake & Output 09/08/24 09/09/24 09/09/24 17:59 05:59 17:59 Intake Total 2405 / 2405 1240 / 1240 Balance 2405 / 2405 1240 / 1240 Weight 150 lb 139 lb Intake: IV 2405 / 2405 1000 / 1000 Oral 240 / 240 Other: Urine Color Yellow Urine Appearance Mucous Threads Urine Odor Normal Comment per pt unmeasured Data Completed and Pending Labs on day of discharge: Labs from last 24 hours 09/09/24 09/09/24 09/08/24 14:36 07:53 21:55 WBC RBC Hgb Hct MCV MCH MCHC RDW Plt Count MPV Immature Gran % Neutrophils % Lymphocytes % Monocytes % Eosinophils % Basophils % Nucleated RBC % Absolute Neutrophils Absolute Lymphocytes Absolute Monocytes Absolute Eosinophils Absolute Basophils D-Dimer VBG pH 7.35 VBG pCO2 44 VBG pO2 59 VBG HCO3 24 VBG Total CO2 22 L VBG O2 Saturation 89 VBG Base Excess -2 VBG Lactate Sodium 143 Potassium 3.8 Chloride 108 H Carbon Dioxide 27.5 Anion Gap 7.5 BUN 9 Creatinine 0.8 Est GFR (CKD-EPI 2020) 85.35 Glucose 163 H Hemoglobin A1c 5.4 Insulin Level Pending Calcium 7.9 L Serum HCG, Qual Urine Color Yellow Urine Clarity Clear Urine pH 6.0 Ur Specific Lee 1.010 Urine Protein Negative Urine Ketones Negative Urine Blood Trace-intact H Urine Nitrite Negative Urine Bilirubin Negative Urine Urobilinogen 0.2 Ur Leukocyte Esterase Negative Urine RBC 3-5 H Urine WBC Negative Ur Epithelial Cells Negative Urine Crystals Negative Urine Bacteria Rare Urine Casts Negative Urine Mucus Negative Ur Culture Indicated? No Urine Glucose Negative Urine Opiates Screen Urine Methadone Screen Ur Barbiturates Screen Ur Tricyclics Screen Ur Amphetamines Screen U Benzodiazepines Scrn Urine Cocaine Screen Ur THC Screen Ethyl Alcohol < 3.0 COVID-19 Source SARS-CoV-2 (PCR) Influenza Type A (PCR) Influenza Type B (PCR) RSV (PCR) Add-On Test Request DONE 09/08/24 09/08/24 09/08/24 19:57 19:54 18:42 WBC RBC Hgb Hct MCV MCH MCHC RDW Plt Count MPV Immature Gran % Neutrophils % Lymphocytes % Monocytes % Eosinophils % Basophils % Nucleated RBC % Absolute Neutrophils Absolute Lymphocytes Absolute Monocytes Absolute Eosinophils Absolute Basophils D-Dimer VBG pH VBG pCO2 VBG pO2 VBG HCO3 VBG Total CO2 VBG O2 Saturation VBG Base Excess VBG Lactate 1.0 Sodium Potassium Chloride Carbon Dioxide Anion Gap BUN Creatinine Est GFR (CKD-EPI 2020) Glucose Hemoglobin A1c Insulin Level Calcium Serum HCG, Qual Urine Color Yellow Urine Clarity Clear Urine pH 5.5 Ur Specific Lee <= 1.005 Urine Protein Negative Urine Ketones 40 H Urine Blood Small H Urine Nitrite Negative Urine Bilirubin Negative Urine Urobilinogen 0.2 Ur Leukocyte Esterase Negative Urine RBC 0-2 Urine WBC Negative Ur Epithelial Cells Rare Urine Crystals Negative Urine Bacteria Rare Urine Casts Negative Urine Mucus Negative Ur Culture Indicated? No Urine Glucose >=1000 H Urine Opiates Screen Negative Urine Methadone Screen Negative Ur Barbiturates Screen Negative Ur Tricyclics Screen Negative Ur Amphetamines Screen Negative U Benzodiazepines Scrn Negative Urine Cocaine Screen Negative Ur THC Screen Negative Ethyl Alcohol COVID-19 Source SARS-CoV-2 (PCR) Influenza Type A (PCR) Influenza Type B (PCR) RSV (PCR) Add-On Test Request 09/08/24 09/08/24 18:31 17:04 WBC 4.62 RBC 4.46 Hgb 13.5 Hct 40.5 MCV 91 MCH 30.3 MCHC 33.3 RDW 12.5 Plt Count 377 MPV 9.9 Immature Gran % 0.2 Neutrophils % 56.9 Lymphocytes % 31.0 Monocytes % 9.3 Eosinophils % 1.3 Basophils % 1.3 Nucleated RBC % 0.0 Absolute Neutrophils 2.63 Absolute Lymphocytes 1.43 Absolute Monocytes 0.43 Absolute Eosinophils 0.06 Absolute Basophils 0.06 D-Dimer 782 H VBG pH VBG pCO2 VBG pO2 VBG HCO3 VBG Total CO2 VBG O2 Saturation VBG Base Excess VBG Lactate Sodium 137 Potassium 4.0 Chloride 98 Carbon Dioxide 21.6 Anion Gap 17.4 H BUN 15 Creatinine 0.8 Est GFR (CKD-EPI 2020) 85.35 Glucose 44 L* Hemoglobin A1c Insulin Level Calcium 9.0 Serum HCG, Qual Negative Urine Color Urine Clarity Urine pH Ur Specific Lee Urine Protein Urine Ketones Urine Blood Urine Nitrite Urine Bilirubin Urine Urobilinogen Ur Leukocyte Esterase Urine RBC Urine WBC Ur Epithelial Cells Urine Crystals Urine Bacteria Urine Casts Urine Mucus Ur Culture Indicated? Urine Glucose Urine Opiates Screen Urine Methadone Screen Ur Barbiturates Screen Ur Tricyclics Screen Ur Amphetamines Screen U Benzodiazepines Scrn Urine Cocaine Screen Ur THC Screen Ethyl Alcohol COVID-19 Source Nasopharynx SARS-CoV-2 (PCR) Negative Influenza Type A (PCR) Negative Influenza Type B (PCR) Negative RSV (PCR) Negative Add-On Test Request [facility] All Active Problems (Updated 09/08/24 @ 23:55 by Bayron Coughlin) Pelvic cyst in female (Acute) DVT prophylaxis (Acute) High anion gap (Acute) Hypoglycemia (Acute) Chronic back pain (Acute) Medical History (Updated 09/08/24 @ 23:55 by Bayron Coughlin) H/O methicillin resistant Staphylococcus aureus 2018 at [facility] ADHD Urticaria PTSD (post-traumatic stress disorder) Major depression Hypertension Surgical History (Updated 09/09/24 @ 00:04 by Bayron Coughlin) Status post bilateral salpingectomy ectopic S/P placement of nerve stimulator lower back, battery replaced July 2024, [facility] Social History (Updated 09/08/24 @ 22:16 by Bayron Coughlin) Smoking/Tobacco Use Status: Never Smoking risk assessment performed?: Yes Alcohol Intake: never Housing: house Do you feel safe in your relationship?: Yes Additional Social history: formerly worked at [employer] in [employer]. Lives in [place] Time Spent with Patient Time Spent with Patient: <45 minutes Time was spent: preparing to see the patient(eg.review tests), obtaining and/or reviewing separately otained hiistory, ordering medications,tests, procedures, referring, communicating with other health care partner, indepentently interpreting results, counseling the patient and care coordination
--- NOTE | 2024-09-09 18:32 | CMDISCH_ITS ---
Date of service: 09/09/24 Time of Service: 18:32 LACE Index Scoring Tool Questions: Length of Stay (in days): 1 Was the patient admitted via the E.D.?: Yes E.D. Visits: 1 Answers: Total Score: 5 Risk of Readmission: Low Risk Care Management Discharge Plan Reason for Hospitalization: hypoglycemia Discharge Plan: Mitali will be discharged home with no new services. She will follow up with her PCP and plan of care and transport with a friend. Patient/Family Education Needs: review of discharge instructions, limitations, follow up plan and discuss Ask Me [facility] Health Related Social Needs: No Data to Display
[2024-09-10 09:05] LABS: Insulin 10.6 uIU/mL (<29.0)
== END 2024-09-09 17:03 | disposition home or self-care (01) ==
LOC: ER 23:21 → MS 09-09 00:14
PROVIDERS: Admitting Provider Family Medicine; Emergency Provider Emergency Medicine; PCP Internal Medicine; Responsible Provider Family Medicine; Visit Provider Family Medicine
DX: E16.2 Hypoglycemia, unspecified (principal); G89.29 Other chronic pain; N83.8 Other noninflammatory disorders of ovary, fallopian tube and broad ligament; I10 Essential (primary) hypertension; F32.9 Major depressive disorder, single episode, unspecified; Z96.82 Presence of neurostimulator; M54.50 Low back pain, unspecified; R53.83 Other fatigue; F43.10 Post-traumatic stress disorder, unspecified; Z79.899 Other long term (current) drug therapy
CPT/HCPCS: 00123; 36415; 36416; 71275; 80048; 80307; 82805; 82962; 87637; 96361; 96365; 96366; 96367; 96372; 99285; J1650; J3490; 71045; 72131; 80320; 81003; 81015; 83036; 83525; 83605; 84703; 85025; 85379; 99222; 99239; G0378; J0692; J2020; J7042

== ENCOUNTER 2024-12-05 06:59 | Day surgery (SDC) | payer BC, SELFPAY ==
--- NOTE | 2024-12-04 18:08 | W.ANESPRE ---
General Info Date of Service Date Performed: 12/05/24 Height: 5 ft 3 in Weight: 63.957 kg Body Mass Index (BMI): 25.0 Surgical Procedure: Operation Date: 12/05/24 08:20 Proposed Procedure Side Surgeon rocio Chaidez MD Meds Allergies and Home Medications Allergies Allergy/AdvReac Type Severity Reaction Status Date / Time vancomycin Allergy Severe Anaphylaxis Verified 12/05/24 07:09 cat dander Allergy Hives Verified 12/05/24 07:09 erythromycin base Allergy Hives Verified 12/05/24 07:09 gabapentin Allergy Hives Verified 12/05/24 07:09 hydrocodone Allergy Unknown Verified 12/05/24 07:09 latex Allergy Unknown Verified 12/05/24 07:09 Milk Containing Products Allergy Other (See Verified 12/05/24 07:09 (Dairy) (Milk Containing Comment) Products) cedarwood AdvReac Intermediate Skin Rash Verified 12/05/24 07:10 Home Medication ?Medication ?Instructions ?Recorded acetaminophen 325 mg tablet 2 day PO BID 12/06/16 (Tylenol) pregabalin 150 mg capsule (Lyrica) 150 mg PO DAILY 12/06/16 hydrochlorothiazide 25 mg tablet 25 mg PO DAILY 09/08/24 lisinopril 40 mg tablet 40 mg PO DAILY 09/08/24 albuterol sulfate 90 mcg/actuation 2 puff inhalation Q6H PRN 11/07/24 aerosol inhaler (Ventolin HFA) clonidine HCl 0.1 mg tablet 0.1 mg PO BID 11/07/24 methylphenidate HCl 20 mg tablet 20 mg PO TID 11/07/24 (Ritalin) pramipexole 0.25 mg tablet 0.25 mg PO QHS 11/07/24 timolol 0.5 % eye drops 1 drp ophthalmic (eye) DAILY 11/07/24 travoprost 0.004 % eye drops 1 drp ophthalmic (eye) QPM 11/07/24 vilazodone 20 mg tablet (Viibryd) 30 mg PO DAILY 11/07/24 Current Visit Medications: Current Medications Generic Name Dose Route Start Last Admin Trade Name Freq PRN Reason Stop Dose Admin Ringer's Solution 1,000 mls @ 80 mls/hr 12/05/24 06:00 IV 12/05/24 23:59 INFUSION VIDYA IV Miscellaneous Supplies 1 each 12/05/24 06:00 Iv Access IV 12/05/24 23:59 DIRECTED VIDYA Sodium Chloride 0 ml 12/05/24 06:00 Normal Saline Flush 10 Ml Syr IV 12/05/24 23:59 PRN PRN Sodium Chloride 0 ml 12/05/24 06:00 Normal Saline 10 Ml Vial IJ 12/05/24 23:59 DIRECTED PRN Sterile Water 0 ml 12/05/24 06:00 Water,Injection,Sterile 10 Ml Vial IJ 12/05/24 23:59 DIRECTED PRN [facility] Active Problems Active Problems: Problem Status Onset Code Pelvic cyst in female Acute N94.89 DVT prophylaxis Acute Z29.9 Chronic back pain Acute M54.9, G89.29 Medical History Medical History Infection of spinal cord stimulator (~2010) removal of infected spine stimulator 09/30/2010 H/O methicillin resistant Staphylococcus aureus 2018 at [facility] ADHD Urticaria PTSD (post-traumatic stress disorder) Pt. denies any triggers Major depression Hypertension Surgical History Surgical History Hx of laminectomy History of bilateral carpal tunnel release (~2018) History of colonoscopy 09/04/2019 Status post bilateral salpingectomy ectopic S/P placement of nerve stimulator lower back, battery replaced July 2024, [facility] Tobacco Smoking/Tobacco Use Status: Never Passive smoking exposure: Yes Alcohol Alcohol Intake: current Alcohol intake frequency: holidays/special occasions only Alcohol type: hard liquor and other Substance Use Substance use: Never Substance use type: does not use Vital Signs and Lab Results Vital Signs Most Recent Vital Signs in EMR: Temp Pulse Resp BP Pulse Ox 36.3 C L 66 16 133/80 100 12/05/24 07:19 12/05/24 07:19 12/05/24 07:19 12/05/24 07:19 12/05/24 07:19 Anesthesia Assessment and Plan Anesthesia History Personal History: No History of Anesthesia Complications Family History: No Family History of Anesthesia Complications Exercise Tolerance Exercise Tolerance: Metabolic Equivalents>4 Pertinent Negatives Pertinent Negatives: No Symptoms of GERD Cardiac & Pulmonary Exam Cardiac Exam: Normal S1/S2 Heart Sounds Pulmonary Exam: Clear Bilateral Breath Sounds Implantable Cardiac Device Does patient have a Pacemaker or an ICD?: No Airway Exam Known Difficult Airway: No Mallampati Class: 2 Mouth Opening: Normal (> 3cm) Thyromental Distance: Greater than 3 cm Neck Range of Motion: Full ROM Neck Circumference: Normal Teeth Condition: Removable Dentures/Plates Upper and Removable Dentures/Plates Lower ASA Classification ASA Score: ASA 2 Emergency Case?: No NPO Status NPO Status: NPO Clears >2 hours, Solids >8 hours Anesthesia Plan Resuscitation Status: Full Code Anesthesia Technique: General Anesthesia Airway Planned: Natural Airway Monitors Used: Standard Monitors Preoperative Comments:: 59 yo for colo. Sig PMHx: HTN (lisinopril, HCTZ), ADHD/depression, LBP
[2024-12-05 07:19] VITALS: BP 133/80; PULSE 66; RESP 16; TEMP 36.3; O2SAT 100
[2024-12-05] MEDS: Lactated Ringers 1,000 ML 80 ML IV (07:34)
--- NOTE | 2024-12-05 07:56 | W.PM.DSUDISC ---
Date of service: 12/05/24 Discharge Plan Disposition Patient Disposition: Home Condition: Good Discharge Details Attending Provider: Bora Chaidez Primary Care Provider: Adolph Upton Home Meds and New Rx's Prescriptions: No Action clonidine HCl 0.1 mg tablet 0.1 mg PO BID methylphenidate HCl [Ritalin] 20 mg tablet 20 mg PO TID pramipexole 0.25 mg tablet 0.25 mg PO QHS albuterol sulfate [Ventolin HFA] 90 mcg/actuation HFA aerosol inhaler 2 puff inhalation Q6H PRN vilazodone [Viibryd] 20 mg tablet 30 mg PO DAILY timolol 0.5 % drops 1 drp ophthalmic (eye) DAILY travoprost 0.004 % drops 1 drp ophthalmic (eye) QPM acetaminophen [Tylenol] 325 MG tablet 2 day PO BID pregabalin [Lyrica] 150 MG capsule 150 mg PO DAILY lisinopril 40 mg tablet 40 mg PO DAILY hydrochlorothiazide 25 mg tablet 25 mg PO DAILY Discharge Instructions Additional Instructions: FINDINGS: No cancer. No polyps. You did have some very mild inflammation in your rectum(proctitis). This is nonspecific and incidental. It could be simply irritation from the prep. Alternatively if you have been having any symptoms, it could represent a mild autoimmune condition such as Crohn's disease or ulcerative colitis. We did take biopsies of it and again, as long as you are not having any symptoms, it is really nothing to worry about. However, if you have been having issues, you may want to follow-up with your PCP and discuss referral to see a television tube inspector. Some very minimal diverticular disease and hemorrhoid disease was also seen incidentally today. These conditions are extremely common, benign and nothing needs to be done about them. Overall, you should repeat another colonoscopy in 5 years because the family history of colon cancer in your mother. Stand Alone Forms: Anesthesia Discharge Inst., Colonoscopy Post Instructions, Lino Mccabe (DSU) Activity:: Activity as Tolerated Diet:: As Tolerated Discharge Orders Discharge Orders: Discharge Order (Routine); Ordered 12/05/24 Ordered By: Bora Chaidez
--- NOTE | 2024-12-05 07:57 | W.COLOREPORT ---
Date of service: 12/05/24 Time of Service: 07:57 Colonoscopy Report Procedure Description: PROCEDURES PERFORMED: 1. Colonoscopy with cold forceps biopsy PREOPERATIVE DIAGNOSIS: Surveillance colonoscopy, family history of colon cancer POSTOPERATIVE DIAGNOSIS: Mild proctitis, scant diverticulosis, grade 1 internal hemorrhoids SURGEON: Aria Chaidez MD INDICATION FOR PROCEDURE: 59-year-old woman has no symptoms. Her mother had colon cancer. Her last colonoscopies have been reportedly normal. FINDINGS: Normal terminal ileum. Polyps: There were no polyps found anywhere. Isolated to the sigmoid colon are some very early/scant diverticular changes without associated inflammation. There is mild/minimal but circumferential proctitis in the distal rectum(~10cm). May simply be irritation from the prep but biopsies were taken here to assess/confirm. Some mild, grade 1 internal hemorrhoid disease is present at 2 columns SURVEILLANCE/follow-up: 5 years because of the family history SPECIMENS: Yes EBL: Minimal COMPLICATIONS: None QUALITY of prep: Excellent Procedure in detail: The patient gave written consent and was in agreement with the indications, the potential risks as well as the benefits of the procedure. They were taken to the endoscopy suite and laid in the left lateral decubitus position. A timeout was performed and anesthesia was administered which was tolerated well. I started the procedure. Digital rectal and visual examination was performed and grossly within normal limits. A well-lubricated flexible colonoscope was then introduced and passed without any notable difficulty all the way to the cecum identified by the ileocecal valve and the appendiceal orifice. The terminal ileum was briefly, intubated and looked normal. The scope was then slowly withdrawn with the above-noted findings. The patient tolerated the procedure well and was taken to the PACU in hemodynamically stable condition.
[2024-12-05 07:59] VITALS: BMI 25.0
--- NOTE | 2024-12-05 08:30 | BOWEL_PTH ---
PATIENT: Mitali Armas LOC: [facility] U#:[id number] AGE/SX: 59/F ROOM: RE12/05/[address]: Bora Chaidez : 1965 BED: DIS: 12/05/2024 SPEC #: [id number] RECD: 12/05/24 09:01 STATUS: LUPIS RE #: [id number] ALDEN: 12/05/24 08:[address]: Bora Chaidez DEPT: Surgical Specimen RECD BY: Yoko Carson ENTERED: 12/05/24 09:02 SP TYPE: Bowel OTHR DR: Adolph Upton Tissues: 1 - BIOPSY BOWEL Procedures: GROSS AND MICRO LEVEL 4 IMMUNOPEROXIDASE STAIN Comments: [id number]
[2024-12-05 08:35] VITALS: BP 113/67; PULSE 66; RESP 16; TEMP 36; O2SAT 100
--- NOTE | 2024-12-05 08:55 | W.ANESPOSTOP ---
Postoperative Evaluation Date, Time and Location Date Performed: 12/05/24 Time Performed: 08:45 Patient Location: Day Surgery Unit Vital Signs Most Recent Imported Vital Signs: Most Recent Vital Signs Temp Pulse Resp BP Pulse Ox 36 C L 66 16 113/67 100 12/05/24 08:35 12/05/24 08:35 12/05/24 08:35 12/05/24 08:35 12/05/24 08:35 Pain Score Most Recent Pain Score: Most Recent Pain Score Pain Level 0 12/05/24 08:35 Assessment Mental Status: Awake (Alert & Oriented to Patient Baseline) Airway and Respiratory Function: Patent airway with normal (patient baseline) respiratory exam Cardiovascular Function: Hemodynamically Stable Hydration Status: Adequately Hydrated Nausea & Vomiting: No Nausea or Vomiting Pain: Pt. Denies Any Pain Peripheral Nerve Block: Patient did not receive a nerve block
[2024-12-05 09:09] VITALS: BP 128/73; PULSE 67; RESP 16; TEMP 36.6; O2SAT 100
== END 2024-12-05 09:22 | disposition home or self-care (01) ==
LOC: SUR 06:59
PROVIDERS: PCP Family Medicine; Visit Provider Student in an Organized Health Care Education/Training Program
PROC: 0DJD8ZZ Inspection of Lower Intestinal Tract, Via Natural or Artificial Opening Endoscopic (ICD-10-PCS; CPT 45378; principal; 2024-12-05 08:15)
DX: Z12.11 Encounter for screening for malignant neoplasm of colon (principal); Z80.0 Family history of malignant neoplasm of digestive organs; I10 Essential (primary) hypertension; K57.30 Diverticulosis of large intestine without perforation or abscess without bleeding; K64.8 Other hemorrhoids; K62.89 Other specified diseases of anus and rectum
CPT/HCPCS: 45380; 88305; 88361; J2704